=== PATIENT | male | born 2000 | race Caucasian/White ===

== ENCOUNTER 2025-09-01 01:57 | Emergency (ER) | payer BC, SELFPAY ==
[2025-09-01 02:02] VITALS: BP 115/73
[2025-09-01 02:06] VITALS: BMI 23.4
[2025-09-01 02:07] VITALS: BP 115/73
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
[2025-09-01] MEDS: MOTRIN 600 MG PO (03:13)
[2025-09-01] MEDS: ADACEL 0.5 ML IM (03:13)
== END 2025-09-01 04:15 | disposition home or self-care (01) ==
LOC: EMR 01:57
PROVIDERS: EMERGENCY PHYSICIAN Emergency Medicine; FAMILY PHYSICIAN Family Medicine
DX: S01.111A Laceration without foreign body of right eyelid and periocular area, initial encounter (principal); S60.512A Abrasion of left hand, initial encounter; Y04.0XXA Assault by unarmed brawl or fight, initial encounter; Z23 Encounter for immunization
CPT/HCPCS: 12011; 99282; 90471; 90715